=== PATIENT | female | born 1945 | race Caucasian/White ===

== ENCOUNTER 2019-05-04 11:54 | Emergency (ER) | payer MEDICARE, OTHER ==
[~2019-05-04] VITALS: Ht 160 cm; Wt 77.1 kg
--- OUTSIDE RECORDS SUMMARY | 2019-05-04 12:49 | XMS REPORT ---
Author Author Truong Martinez [facility] Address [address] [place], [place] [id number] Care Team Providers Care Teaching Specialists Name Role Phone Truong Martinez PCP Allergies and Adverse Reactions Name Reaction Notes Percocet Plan of Treatment Not available. Medications Active Name Start Date Estimated Completion Date SIG Comments Aleve 220 mg oral tablet take 2 tablet (440 mg) by oral route every 8 hours as needed losartan-hydrochlorothiazide 50-12.5 mg oral tablet take 1 tablet by oral route once daily Kenalog injection 80mg IM q 3 months prn omeprazole 20 mg oral capsule,delayed release(DR/EC) take 1 capsule (20 mg) by oral route once daily before a meal Curcumin 95 % miscellaneous powder Tumeric Curcumin 500mg daily Ventolin HFA 90 mcg/actuation inhalation HFA aerosol inhaler inhale 1 puff (90 mcg) by inhalation route every 6 hours as needed Vitamin D3 2,000 unit oral tablet take 2 tablets by oral route daily Tylenol Extra Strength 500 mg oral tablet take 2 tablets (1,000 mg) by oral route at bedtime Name Start Date Expiration Date SIG Comments cyanocobalamin (vitamin B-12) 1,000 mcg oral tablet take 1 tablet by oral route daily Norvasc 5 mg oral tablet take 1 tablet (5 mg) by oral route once daily Problem List Description Status Onset Lipoma Active 10/30/2017 Lipoma Active 10/30/2017 Lipoma Active 11/13/2017 Lipoma Active 11/16/2017 Lipoma Active 11/27/2017 Lipoma Active 11/29/2017 Vital Signs Date Time BP-Sys(mm[Hg] BP-Khadijah(mm[Hg]) HR(bpm) RR(rpm) Temp WT HT HC BMI BSA BMI Percentile O2 Sat(%) 11/27/2017 12:53:00 PM 144 mmHg 87 mmHg 72 bpm 18 rpm 98.1 F 178.5 lbs 63 in 31.62 kg/m2 1.90 m2 11/13/2017 11:43:00 AM 156 mmHg 79 mmHg 69 bpm 20 rpm 98.2 F 179 lbs 63 in 31.7081 kg/m 1.8997 m 10/30/2017 10:57:00 AM 160 mmHg 82 mmHg 77 bpm 20 rpm 97.8 F 176 lbs 63 in 31.18 kg/m2 1.88 m2 Social History Name Description Comments denies alcohol use Tobacco Never smoker History of Procedures Not available. Results Summary Not available. History Of Immunizations Not available. History of Past Illness Name Date of Onset Comments Arthritis of knee, right Asthma Diverticulosis of colon GERD (gastroesophageal reflux disease) Hemorrhoids Hypertension Hyperlipemia Allergies Osteoarthritis of hip, unspecified Prediabetes Lipoma 11/29/2017 Lipoma Oct 30 2017 11:00AM Lipoma Oct 30 2017 12:33PM Lipoma Nov 13 2017 11:47AM Lipoma Nov 27 2017 12:55PM Payers Insurance Name Company Name Plan Name Plan Number Policy Number Policy Group Number Start Date Medicare Part B Medicare Of [place] [id number] N/A Aetna Medicare Supplement Aetna Medicare Supplement [id number] N/A History of Encounters Visit Date Visit Type Provider 11/27/2017 Procedures Truong Martinez DO 11/13/2017 Procedures Truong Martinez DO 10/30/2017 Procedures Truong Martinez DO
--- OUTSIDE RECORDS SUMMARY | 2019-05-04 12:49 | XMS REPORT ---
Author Author Truong Martinez [facility] Address [address] [place], [place] [phone] Care Team Providers Care Chocolate Molder Name Role Phone Truong Martinez PCP Allergies [...] HC BMI BSA BMI Percentile O2 Sat(%) 12/11/2017 11:23:00 AM 144 mmHg 87 mmHg 72 bpm 20 rpm 97.7 F 182.5 lbs 11/27/2017 12:53:00 PM 144 mmHg 87 mmHg 72 bpm 18 rpm 98.1 F 178.5 lbs 63 in 31.6195 kg/m 1.8971 m 11/13/2017 11:43:00 AM 156 mmHg 79 mmHg 69 bpm 20 rpm 98.2 F 179 lbs 63 in 31.71 kg/m2 1.90 m2 10/30/2017 10:57:00 AM 160 mmHg 82 mmHg 77 bpm 20 rpm 97.8 F 176 lbs 63 in 31.1767 kg/m 1.8838 m Social History Name Description Comments denies alcohol [...] Date Medicare Part B Medicare Of [place] [id number] N/A Aetna Medicare Supplement Aetna Medicare Supplement [id number] N/A History of Encounters Visit Date Visit Type Provider 12/11/2017 Procedures Truong Martinez DO 11/27/2017 Procedures Truong Martinez DO 11/13/2017 Procedures Truong Martinez DO 10/30/2017 Procedures Truong Martinez DO
--- OUTSIDE RECORDS SUMMARY | 2019-05-04 12:49 | XMS REPORT ---
Author Author Truong Martinez Organization [facility] Address [address] [place], [place] [phone] Care Team Providers Care Department Assistant Name Role Phone Truong Martinez PCP Allergies [...] 10/30/2017 Lipoma Active 11/13/2017 Lipoma Active 11/16/2017 Vital Signs Date Time BP-Sys(mm[Hg] BP-Khadijah(mm[Hg]) HR(bpm) RR(rpm) Temp WT HT HC BMI BSA BMI Percentile O2 Sat(%) 11/13/2017 11:43:00 AM 156 mmHg 79 mmHg [...] Allergies Osteoarthritis of hip, unspecified Prediabetes Lipoma 11/16/2017 Lipoma Oct 30 2017 11:00AM Lipoma Oct 30 2017 12:33PM Lipoma Nov 13 2017 11:47AM Payers Insurance Name Company Name Plan Name Plan Number Policy Number Policy Group Number Start Date Medicare Part B Medicare Of [place] [id number] N/A Aetna Medicare Supplement Aetna Medicare Supplement [id number] N/A History of Encounters Visit Date Visit Type Provider 11/13/2017 Procedures Truong Martinez DO 10/30/2017 Edenilson Martinez DO
--- OUTSIDE RECORDS SUMMARY | 2019-05-04 12:49 | XMS REPORT ---
Author Author Truong Martinez [facility] Address [address] [place], [place] [phone] Care Team Providers Care Optical Instrument Inspector Name Role Phone Truong Martinez PCP Allergies [...] Date Medicare Part B Medicare Of [place] [id number] N/A Aetna Medicare Supplement Aetna Medicare Supplement [id number] N/A History of Encounters Visit Date Visit Type Provider 11/13/2017 Procedures Truong Martinez DO 10/30/2017 Edenilson Martinez DO
--- OUTSIDE RECORDS SUMMARY | 2019-05-04 12:49 | XMS REPORT ---
Author Author Truong Martinez [facility] Address [address] [facility] [address] [place], [place] [phone] Care Team Providers Care Asbestos Removal Worker Name Role Phone Truong Martinez PCP Allergies [...] Onset Lipoma Active 10/30/2017 Lipoma Active 10/30/2017 Vital Signs Date Time BP-Sys(mm[Hg] BP-Khadijah(mm[Hg]) HR(bpm) RR(rpm) Temp WT HT HC BMI BSA BMI Percentile O2 Sat(%) 10/30/2017 10:57:00 AM 160 mmHg 82 mmHg [...] Allergies Osteoarthritis of hip, unspecified Prediabetes Lipoma 10/30/2017 Lipoma Oct 30 2017 11:00AM Lipoma Oct 30 2017 12:33PM Payers Insurance Name Company Name Plan Name Plan Number Policy Number Policy Group Number Start Date Medicare Part B Medicare Of [place] [id number] N/A Aetna Medicare Supplement Aetna Medicare Supplement [id number] N/A History of Encounters Visit Date Visit Type Provider 10/30/2017 Procedures Truong Martinez DO
--- OUTSIDE RECORDS SUMMARY | 2019-05-04 12:49 | XMS REPORT | Clinical Summary ---
Author Author Admin, Francheska Organization [facility] Address Unknown Phone Unavailable Allergies, Adverse Reactions, Alerts Allergy Name Reaction Description Start Date Severity Status Provider PERCOCET jaundice Critical Active James Grant MD Conditions or Problems Problem Name Problem Code Onset Date Status Entry Date Provider Comment Standard Description Annotate Hypertension, benign essential 401.1 Active James Grant MD Benign essential hypertension Insect bite 919.4 Active James Grant MD Insect bite, nonvenomous, of other, multiple, and unspecified sites, without mention of infection GERD 530.81 Active James Grant MD Esophageal reflux Medication List Medication Instructions Start Date Stop Date Generic Name NDC Status Provider Patient Instruction PREDNISONE 20 MG TABS 2 daily for 3 days then 1 daily for 3 days PREDNISONE 19899786371 Active James Grant MD Active ACETAMINOPHEN 500 MG ORAL TABS 2 by mouth at bedtime ACETAMINOPHEN 11023464507 Active James Grant MD Active FISH OIL 1200 MG ORAL CAPS Take one by mouth daily OMEGA-3 FATTY ACIDS 23454101190 Active James Grant MD Active B-12 1000 MCG ORAL CAPS Take one by mouth daily CYANOCOBALAMIN 54697197340 Active James Grant MD Active ALEVE 220 MG ORAL CAPS 2 by mouth every morning NAPROXEN SODIUM 85144935898 Active James Grant MD Active SILYMARIN ORAL CAPS Take one by mouth daily MILK THISTLE-TURMERIC 03010621947 Active James Grant MD Active VITAMIN D3 2000 UNIT ORAL CAPS Take one by mouth daily CHOLECALCIFEROL 95800084504 Active James Grant MD Active LISINOPRIL 10 MG ORAL TABS Take one by mouth daily LISINOPRIL 48866353722 Active James Grant MD Active OMEPRAZOLE 10 MG ORAL CPDR Take one by mouth daily OMEPRAZOLE 70211140530 Active James Grant MD Active Vital Signs Date Name Value Unit Range Description blood pressure, diastolic - 8462-4 84 mm[Hg] BP [place] blood pressure, systolic - 8480-6 149 mm[Hg] BP sys height E&M - 8302-2 63 [in_us] Bdy height pulse rate E&M - 8867-4 67 /min Heart rate temperature E&M 98.7 [degF] Body temperature weight E&M - 3141-9 178.4 [lb_av] Weight Measured Encounters Code Encounter Date Provider Facility [id number] Level 2 New Patient 11:40:56 CDT James Grant MD [facility]
--- OUTSIDE RECORDS SUMMARY | 2019-05-04 12:50 | XMS REPORT | Continuity of Care Document ---
Author Organization Unknown Address Unknown Allergies Active Description Code Type Severity Reaction Onset Reported/Identified Relationship to Patient Clinical Status Yes Levaquin Drug N/A N/A Yes Percocet 5/325 Drug N/A N/A Medications There is no data. Problems Date Dx Coded Attending Type Code Diagnosis Diagnosed By 03/05/2019 IVETTE GRIFFITH Reason For Visit J30.9 Allergic rhinitis, unspecified 03/11/2019 IVETTE GRIFFITH Reason For Visit J30.9 Allergic rhinitis, unspecified 03/19/2019 IVETTE GRIFFITH Final J30.2 Other seasonal allergic rhinitis 03/19/2019 IVETTE GRIFFITH Reason For Visit R51 Headache 03/26/2019 IVETTE GRIFFITH Reason For Visit J30.9 Allergic rhinitis, unspecified 04/09/2019 IVETTE GRIFFITH Reason For Visit J30.9 Allergic rhinitis, unspecified 04/16/2019 IVETTE GRIFFITH Reason For Visit J30.9 Allergic rhinitis, unspecified Procedures There is no data. Results There is no data. Encounters ACCT No. Visit Date/Time Discharge Status Pt. Type Provider Facility Loc./Unit Complaint [id number] 12/11/2017 12:03:15 12/11/2017 23:59:59 [facility] Outpatient Truong Martinez [id number] 11/27/2017 11:42:37 11/27/2017 23:59:59 [facility] Outpatient Truong Martinez [id number] 11/13/2017 11:46:28 11/13/2017 23:59:59 [facility] Outpatient Truong Martinez [id number] 10/30/2017 11:29:03 10/30/2017 23:59:59 [facility] Outpatient Truong Martinez [id number] 04/30/2019 10:00:33 04/30/2019 23:59:59 [facility] Outpatient IVETTE GRIFFITH [facility] [id number] 04/22/2019 10:14:51 04/22/2019 23:59:59 DIS Outpatient IVETTE GRIFFITH [facility] [id number] 04/16/2019 10:15:00 04/16/2019 23:59:59 DIS Outpatient IVETTE GRIFFITH [facility] [id number] 04/09/2019 10:14:34 04/09/2019 23:59:59 DIS Outpatient IVETTE GRIFFITH [facility] [id number] 03/26/2019 10:11:39 03/26/2019 23:59:59 DIS Outpatient IVETTE GRIFFITH [facility] [id number] 03/19/2019 10:00:00 03/19/2019 23:59:59 DIS Outpatient IVETTE GRIFIFTH [facility] [id number] 03/11/2019 14:30:00 03/11/2019 23:59:59 DIS Outpatient IVETTE GRIFFITH [facility] [id number] 03/05/2019 09:52:33 03/05/2019 23:59:59 DIS Outpatient IVETTE GRIFFITH [facility] [id number] 02/26/2019 09:54:25 02/26/2019 23:59:59 DIS Outpatient IVETTE GRIFFITH [facility] [id number] 02/19/2019 10:00:00 02/19/2019 23:59:59 DIS Outpatient IVETTE GRIFFITH [facility] [id number] 02/12/2019 09:45:00 02/12/2019 23:59:59 DIS Outpatient IVETTE GRIFFITH [facility] [id number] 02/05/2019 09:52:02 02/05/2019 23:59:59 DIS Outpatient IVETTE GRIFFITH [facility] [id number] 01/29/2019 10:26:58 01/29/2019 23:59:59 DIS Outpatient IVETTE GRIFFITH [facility] [id number] 01/14/2019 15:00:00 01/14/2019 23:59:59 DIS Outpatient IVETTE GRIFFITH [facility] [id number] 01/05/2019 09:30:00 01/05/2019 23:59:59 DIS Outpatient IVETTE GRIFFITH [facility] [id number] 12/30/2018 10:00:00 12/30/2018 23:59:59 DIS Outpatient IVETTE GRIFFITH [facility] [id number] 12/25/2018 09:00:00 12/25/2018 23:59:59 DIS Outpatient IVETTE GRIFFITH [facility] [id number] 12/18/2018 09:45:00 12/18/2018 23:59:59 DIS Outpatient IVETTE GRIFFITH [facility] [id number] 12/11/2018 10:00:00 12/11/2018 23:59:59 DIS Outpatient IVETTE GRIFFITH [facility] [id number] 12/04/2018 11:49:46 12/04/2018 23:59:59 DIS Outpatient IVETTE GRIFFITH [facility] [id number] 12/04/2018 10:58:13 12/04/2018 23:59:59 DIS Outpatient IVETTE GRIFFITH [facility] [id number] 11/27/2018 09:30:00 11/27/2018 23:59:59 DIS Outpatient IVETTE GRIFFITH [facility] [id number] 11/20/2018 10:02:31 11/20/2018 23:59:59 DIS Outpatient IVETTE GRIFFITH [facility] [id number] 10/20/2018 11:33:05 10/20/2018 23:59:59 DIS Outpatient IVETTE GRIFFITH [facility] [id number] 10/15/2018 15:37:07 10/15/2018 23:59:59 DIS Outpatient IVETTE GRIFFITH [facility] [id number] 10/15/2018 14:15:00 10/15/2018 23:59:59 DIS Outpatient IVETTE GRIFFITH [facility] [id number] 10/10/2018 09:17:45 10/10/2018 23:59:59 DIS Outpatient Johana Sanches [facility] [id number] 10/10/2018 09:15:00 10/10/2018 23:59:59 DIS Outpatient IVETTE GRIFFITH [facility] [id number] 10/09/2018 12:01:02 10/09/2018 23:59:59 DIS Outpatient SanchesJohana [facility] [id number] 10/09/2018 11:07:49 10/09/2018 23:59:59 DIS Outpatient SanchesHarjitJohana E [facility] [id number] 09/23/2018 10:50:53 09/23/2018 23:59:59 DIS Outpatient IVETTE GRIFFITH [facility] [id number] 09/18/2018 16:53:48 09/18/2018 23:59:59 DIS Outpatient IVETTE GRIFFITH [facility] [id number] 07/25/2018 09:23:32 07/25/2018 23:59:59 DIS Outpatient IVETTE GRIFFITH [facility] [id number] 07/15/2018 11:30:00 07/15/2018 23:59:59 DIS Outpatient IVETTE GRIFFITH [facility] [id number] 07/09/2018 09:25:17 07/09/2018 23:59:59 DIS Outpatient IVETTE GRIFFITH [facility] [id number] 07/02/2018 10:42:58 07/02/2018 23:59:59 DIS Outpatient IVETTE GRIFFITH [facility] [id number] 03/13/2018 09:54:44 03/13/2018 23:59:59 DIS Outpatient IVETTE GRIFFITH [facility] [id number] 03/03/2018 10:37:11 03/03/2018 23:59:59 DIS Outpatient IVETTE GRIFFITH [facility] [id number] 03/03/2018 09:56:50 03/03/2018 23:59:59 DIS Outpatient IVETTE GRIFFITH [facility] [id number] 02/17/2018 10:30:00 02/17/2018 23:59:59 DIS Outpatient IVETTE GRIFFITH [facility] [id number] 10/14/2017 10:00:00 10/14/2017 23:59:59 DIS Outpatient IVETTE GRIFFITH [facility] [id number] 10/07/2017 13:30:00 10/07/2017 23:59:59 DIS Outpatient IVETTE GRIFFITH [facility] [id number] 07/19/2017 12:52:17 07/19/2017 23:59:59 DIS Outpatient IVETTE GRIFFITH [facility] PELVIC PAIN, HEMATURIA [id number] 07/16/2017 10:54:42 07/16/2017 23:59:59 DIS Outpatient IVETTE GRIFFITH [facility] [id number] 07/09/2017 11:45:00 07/09/2017 23:59:59 DIS Outpatient IVETTE GRIFFITH [facility] [id number] 07/04/2017 13:47:19 07/04/2017 23:59:59 DIS Outpatient IVETTE GRIFFITH [facility] [id number] 07/04/2017 13:27:02 07/04/2017 23:59:59 DIS Outpatient IVETTE GRIFFITH [facility] [id number] 07/02/2017 08:36:27 07/02/2017 23:59:59 DIS Outpatient IVETTE GRIFFITH [facility] [id number] 07/02/2017 08:35:07 07/02/2017 23:59:59 DIS Outpatient IVETTE GRIFFITH [facility] [id number] 03/21/2017 10:30:15 03/21/2017 23:59:59 CLS Preadmit IVETTE GRIFFITH [facility] diagnostic, left, mass increasing since last mammo, 2 - 3 o'clock, 10 mm by 7 mm [id number] 05/04/2019 02:00:31 Document Registration [id number] 03/30/2019 02:01:17 Document Registration [id number] 03/09/2019 02:00:20 Document Registration [id number] 01/12/2019 02:00:16 Document Registration [id number] 10/17/2018 02:02:00 Document Registration [id number] 10/15/2018 10:01:39 Document Registration [id number] 07/02/2018 10:49:20 Document Registration [id number] 06/18/2018 10:37:22 Document Registration [id number] 06/18/2018 09:52:30 Document Registration [id number] 03/20/2017 09:46:45 Document Registration [id number] 03/19/2017 09:02:12 Document Registration [id number] 03/17/2017 02:02:38 Document Registration [id number] 03/16/2017 02:00:17 Document Registration
--- OUTSIDE RECORDS SUMMARY | 2019-05-04 12:50 | XMS REPORT ---
Author Author Truong Martinez [facility] Address [address] [facility] [address] [place], [place] [address] Care Team Providers Care Senior Grant Writer Name Role Phone Truong Martinez PCP Allergies [...] List Description Status Onset Lipoma Active 10/30/2017 Vital Signs Date Time [...] Lipoma 10/30/2017 Lipoma Oct 30 2017 11:00AM Payers Insurance Name Company Name Plan Name Plan Number Policy Number Policy Group Number Start Date Medicare Part B Medicare Of [place] [id number] N/A Aetna Medicare Supplement Aetna Medicare Supplement [id number] N/A History of Encounters Visit Date Visit Type Provider 10/30/2017 Procedures Truong Martinez DO
--- NOTE | 2019-05-04 12:59 | NUR ---
Patient ambulatory to ER room 10 with family members. Patient complains of a fall today. She states she fell forward and tried to catch herself. patient has abrasions to her nose and face and abrasions to the left wrist area. Patient is complaining of neck pain. She states she always has neck pain but recently had surgery on her neck to have a fusion and titanum plate put in. Patient denies being on blood thinners. She had no loss of consciousness.
[2019-05-04] MEDS ORDERED: TETANUS,DIPTH,PERTUSS P/F (BOOSTRIX) 0.5 ML VIAL IM ONE (13:45)
--- NOTE | 2019-05-04 13:50 | ED Trauma-Multisystem ---
General Chief Complaint: Trauma-Non Activation Stated Complaint: FALL;HEAD INJ Nursing Triage Note: PT STATES SHE WAS WALKING INTO A STORE WHEN SHE TRIPPED AND FELL FACE FORWARD. PT DENIES LOC, PT DENIES BLOOD THINNERS. PT HAS A LACERATION TO LEFT HAND. PT HAS ABRASIONS TO RIGHT SIDE OF FACE. PT HAS HISTORY OF FUSION OF NECK. PT DENIES CSPINE TENDERNESS. History of Present Illness Date Seen by Provider: May 04, 2019 Time Seen by Provider: 13:15 Initial Comments 74-year-old female presents for fall with facial trauma. She was getting out of her daughter's car in a parking lot when she tripped and fell face first. He sustained abrasions to her for head, nose, and chin she also has a small laceration to her left wrist. She had cervical spinal surgery in the last 6 months. She is denying any neck pain, vision changes, loss of consciousness, paresthesias or radicular symptoms in the upper extremities, or nausea/vomiting. She is unsure of her last tetanus immunization. She is denying chest pain or dyspnea. She does not take aspirin or any blood thinners. She was able to stand on her own after the fall. Occurred: Just Prior to Arrival Pain/Injury Location: Face, Head Method of Injury: Fall Loss of Consciousness: No Loss of Consciousness Associated Symptoms (Fall): Denies Symptoms; No Lightheadedness, No Muscle Spasms, No Nausea/Vomiting; Neck Pain; No Shortness of Air, No Slurred Speech, No Trouble Walking, No Vision Changes Allergies and Home Medications Allergies Coded Allergies: acetaminophen (Verified Allergy, Unknown, 05/04/19) oxycodone (Verified Allergy, Unknown, 05/04/19) Home Medications Tramadol HCl 50 Mg Tablet, 50 MG PO Q6H PRN for PAIN Prescribed by: PAULA GR on 05/04/19 4095 Patient Home Medication List Home Medication List Reviewed: Yes Review of Systems Review of Systems Constitutional: no symptoms reported, see HPI Eyes: No Symptoms Reported, See HPI Ears: No Symptoms Reported, See HPI Nose: See HPI, Pain Mouth: No Symptoms Reported, See HPI; No Loose Teeth Throat: No Symptoms to Report, See HPI Respiratory: no symptoms reported, see HPI Cardiovascular: No Symptoms Reported, See HPI Gastrointestinal: no symptoms reported, see HPI Genitourinary: no symptoms reported, see HPI Skin: see HPI, other (abrasion to face and left wrist) Psychiatric/Neurological: No Symptoms Reported All Other Systems Reviewed Negative Unless Noted: Yes Past Xtzogar-Cczndb-Mwpcqn Hx Past Med/Social Hx: Reviewed Nursing Past Med/Soc Hx Patient Social History Alcohol Use: Denies Use Recreational Drug Use: No Smoking Status: Never a Smoker 2nd Hand Smoke Exposure: No Recent Foreign Travel: No Contact w/Someone Who Travel: No Recent Infectious Disease Expo: No Recent Hopitalizations: Yes Immunizations Up To Date PED Vaccines UTD: Yes Seasonal Allergies Seasonal Allergies: No Past Medical History Surgeries: Yes (recent neck fusion, hip replacements, left femur fx repair, jeremie dder ) Abdominal, Bladder Surgery, Section, Hysterectomy, Joint Replacement, Orthopedic, Tonsillectomy Respiratory: No Cardiac: Yes Hypertension Neurological: No [employer] History: Hysterectomy Genitourinary: Yes (bladder surgery) Gastrointestinal: No Musculoskeletal: Yes (neck fusion) Fractures Endocrine: No HEENT: No Cancer: No Psychosocial: No Integumentary: Yes (MRSA hx) Physical Exam Vital Signs Vital Signs - First Documented 05/04/19 05/04/19 12:03 14:52 Temp 97.6 Pulse 78 Resp 18 B/P (MAP) 149/98 (115) Pulse Ox 99 O2 Delivery Room Air Height, Weight, BMI Height: 5'3.00" Weight: 170lbs. oz. 77.736505qe; BMI Method:Stated General Appearance: No Apparent Distress, WD/WN Head: Contusions, Ecchymosis, Tenderness Progress/Results/Core Measures Results/Orders My Orders Orders - PAULA GR Ct Head/Cervical Spine Wo (05/04/19 13:30) Dipht,Pertuss(Acell),Tet Adult (Boostrix (05/04/19 13:45) Tramadol Tablet (Ultram Tablet) (05/04/19 15:00) Medications Given in ED Current Medications Medications Dose Ordered Sig/Opal Route Start Time Stop Time Status Last Admin Dose Admin Diphtheria/ Tetanus/Acell Pertussis 0.5 ml ONCE ONCE IM 05/04/19 13:45 05/04/19 13:46 DC 05/04/19 13:39 0.5 ML Tramadol HCl 50 mg ONCE ONCE PO 05/04/19 15:00 05/04/19 15:00 DC 05/04/19 14:49 50 MG Vital Signs/I&O 05/04/19 05/04/19 12:03 14:52 Temp 97.6 97.7 Pulse 78 66 Resp 18 16 B/P (MAP) 149/98 (115) 132/82 (99) Pulse Ox 99 96 O2 Delivery Room Air Blood Pressure Mean: 115 Progress Progress Note : Time: 13:15 Progress Note Patient seen and evaluated, abrasions for cleaned with Hibiclens and sterile water. Will obtain CT of head and neck. Tetanus vaccine. 1400 patient complaining of mild headache, no neurological changes, tramadol 50 mg 1 by mouth orally for pain. 1430 patient reports improvement in pain. CT negative for acute findings. Apply antibiotic ointment and Band-Aids applied to wounds. Discharge instructions and return precautions reviewed with the patient QUESTIONS answered. Diagnostic Imaging Diagonstic Imaging: CT Plain Films/CT/US/NM/MRI: c-spine, head Comments NAME: KATHERINE COELLO [facility] REC#: [id number] PT STATUS: REG ER : 1945 PHYSICIAN: PAULA GR ADMIT DATE: 05/04/19/ER Draft Date of Exam:05/04/19 CT HEAD/CERVICAL SPINE WO PROCEDURE: CT head and CT cervical spine without contrast. TECHNIQUE: Multiple contiguous axial images were obtained through the brain and cervical spine without the use of intravenous contrast. Sagittal and coronal reformations through the cervical spine were then performed. Auto Exposure Controls were utilized during the CT exam to meet ALARA standards for radiation dose reduction. INDICATION: Fall. COMPARISON: No prior studies are available for comparison. CT HEAD: The ventricles and sulci are within normal limits. No sulcal effacement or midline shift is seen. No acute intra-axial or extra-axial hemorrhage is detected. Cisterns are patent. Visualized paranasal sinuses are clear. IMPRESSION: No acute intracranial process is detected. CT CERVICAL SPINE: Curvature and alignment of the cervical spine is normal. There are postop changes of ACDF with anterior plate and screws extending from C3 through C6. Hardware appears to be intact. No fracture or loosening is seen. Odontoid is intact. Prevertebral tissues are normal. IMPRESSION: C3 through C6 ACDF. No acute feature is detected. Dictated on workstation # [id number] Dict: 05/04/19 1412 Trans: 05/04/19 1419 [id number] Interpreted by: LORI TEJEDA MD Electronically signed by: Departure Impression Primary Impression: Fall Qualified Codes: W19.XXXA - Unspecified fall, initial encounter Additional Impression: Abrasion of face and extremities Qualified Codes: S00.81XA - Abrasion of other part of head, initial encounter; S40.812A - Abrasion of left upper arm, initial encounter; S80.812A - Abrasion, left lower leg, initial encounter Disposition: HOME, SELF-CARE Condition: Improved Departure-Patient Inst. Decision time for Depature: 14:30 Patient Instructions: Minor Head Injury (DC), Wound Care (DC) Add. Discharge Instructions: Move slowly from a sitting/lying position to standing. Increase water intake. Follow-up with your primary care provider later this week. Use the tramadol 1 tablet every 8 hours as needed for pain. For additional pain relief he may take Tylenol 650 mg every 6-8 hours. Ice for 20 minutes to any areas of tenderness or pain. Brain rest: Limit screen time (smart phones, tablets, computers, tv) and wear sunglasses. Return to emergency department for headache not relieved by tramadol or Tylenol, seizure activity, difficulty concentrating, vision changes or any other urgent health care needs. All discharge instructions reviewed with patient and/or family. Voiced understanding. Scripts Tramadol HCl (Tramadol HCl) 50 Mg Tablet 50 MG PO Q6H PRN for PAIN, #20 TAB 0 Refills Prov: PAULA GR 05/04/19 PAULA GR May 04, 2019 13:50
--- NOTE | 2019-05-04 14:19 | Diagnostic Imaging Report ---
PROCEDURE: CT head and CT cervical spine without contrast. TECHNIQUE: Multiple contiguous axial images were obtained through the brain and cervical spine without the use of intravenous contrast. Sagittal and coronal reformations through the cervical spine were then performed. Auto Exposure Controls were utilized during the CT exam to meet ALARA standards for radiation dose reduction. INDICATION: Fall. COMPARISON: No prior studies are available for comparison. CT HEAD: The ventricles and sulci are within normal limits. No sulcal effacement or midline shift is seen. No acute intra-axial or extra-axial hemorrhage is detected. Cisterns are patent. Visualized paranasal sinuses are clear. IMPRESSION: No acute intracranial process is detected. CT CERVICAL SPINE: Curvature and alignment of the cervical spine is normal. There are postop changes of ACDF with anterior plate and screws extending from C3 through C6. Hardware appears to be intact. No fracture or loosening is seen. Odontoid is intact. Prevertebral tissues are normal. IMPRESSION: C3 through C6 ACDF. No acute feature is detected. Dictated by: Dictated on workstation # [id number]
[2019-05-04] MEDS ORDERED: TRAM50TA2 PO (14:45)
[2019-05-04 14:52] VITALS: BP 132/82
== END 2019-05-04 14:53 | disposition home or self-care (01) ==
LOC: ER 11:55
DX: S00.81XA Abrasion of other part of head, initial encounter (principal); S40.812A Abrasion of left upper arm, initial encounter; S80.812A Abrasion, left lower leg, initial encounter; I10 Essential (primary) hypertension; Z88.5 Allergy status to narcotic agent; Z98.1 Arthrodesis status; Z90.89 Acquired absence of other organs; Z90.710 Acquired absence of both cervix and uterus; Z87.81 Personal history of (healed) traumatic fracture; W01.0XXA Fall on same level from slipping, tripping and stumbling without subsequent striking against object, initial encounter; Y92.481 Parking lot as the place of occurrence of the external cause
CPT/HCPCS: 70450; 72125; 90715